=== PATIENT | male | born 1990 ===

== ENCOUNTER 2025-01-06 19:48 | Emergency (ER) | payer MEDICAID, SELFPAY ==
[2025-01-06 19:50] VITALS: BP 142/78; PULSE 80; RESP 18; TEMP 38.2; O2SAT 97; BMI 27.1
--- NOTE | 2025-01-06 19:53 | ED_ITS ---
HPI - General Adult General Chief complaint: Upper Respiratory Symptoms Stated complaint: ?Strep Time Seen by Provider: 01/06/25 19:53 Source: patient, RN notes reviewed and old records reviewed Mode of arrival: ambulatory Limitations: no limitations History of Present Illness ED Provider: Renu MAST narrative: 34-year-old male presents for evaluation of a sore throat and ear pain. He endorses fevers and chills pain Symptoms started yesterday pain He also complains of right ear pain there was no drainage from the ear Related Data Previous Rx's ?Medication ?Instructions ?Recorded amoxicillin 875 mg-potassium 1 tab PO Q12H #20 tabs 01/06/25 clavulanate 125 mg tablet ibuprofen 600 mg tablet 600 mg PO Q6H PRN pain #20 tabs 01/06/25 Allergies Allergy/AdvReac Type Severity Reaction Status Date / Time No Known Allergies Allergy Verified 01/06/25 19:51 Review of Systems Constitutional: Constitutional: Reports body ache(s), Reports chills, Reports fever(s) and Denies headache(s) ENT: Denies vertigo, Denies dizziness, Denies ear discharge, Reports otalgia, Denies facial pain, Denies headache(s) and Reports sore throat Cardiovascular: Cardiovascular: Denies chest pain and Denies dyspnea Respiratory: Respiratory: Denies cough and Denies dyspnea Integumentary/Breasts: Skin/Breast: Denies rash Neurologic: Denies vertigo, Denies dizziness and Denies headache(s) PMFSH Social History Social History Do you have a plan to hurt others: No Plan Physical Exam ED Vital Signs: Vital Signs - 24 hr 01/06/25 19:50 Temperature 100.7 F H Pulse Rate 80 Respiratory Rate 18 Blood Pressure 142/78 H Pulse Oximetry 97 Oxygen Delivery Method Room Air BMI result Body Mass Index 27.1 Const General: healthy appearing, comfortable, no acute distress, alert and awake Nutritional Appearance: well nourished Orientation/consciousness: patient oriented x3 HENMT Other: bilateral tonsillar hypertrophy with whitish exudates bilaterally. And we remains patent. There is no fullness to the soft palate. Uvula remains midline . No anterior neck edema Head: Yes normocephalic and Yes atraumatic Ears: TM's normal bilaterally Eyes Eyelids: Yes eyelids normal Conjunctivae: conjunctivae normal Sclerae: sclerae normal Corneas: corneas normal Pupils: Equal, round and reactive pupils present EOM: EOMs intact bilaterally Neck Neck: Yes full ROM Resp Effort & Inspection: normal respiratory effort, able to speak in complete sentences and not labored Skin General skin exam: elasticity normal Neuro General: patient oriented x3 Cranial nerves: Yes Equal, round and reactive pupils present and Yes Bilaterally intact EOM present Cognition (Neuro): normal cognition Extrem Other: Moving all extremities well without any obvious deformities Medical Decision Making Medical Decision Making MDM Narrative: 34-year-old male presents for evaluation of a sore throat and ear pain. He has an obvious pharyngitis with exudates on exam. Discussed possible strep testing, however he is febrile on will likely require antibiotics urine if it was negative. We will discharge the patient with Augmentin b.i.d. times 10 days there was no evidence of peritonsillar abscess Differential Diagnosis Differential Diagnoses: The differential diagnosis associated with the presentation includes pharyngitis Upper respiratory infection Exudative pharyngitis Viral syndrome less likely Tests considered The following testing was considered but not selected: Strep A testing Discharge Plan Discharge Clinical Impression: Pharyngitis Patient Disposition: Home, Self-Care Instructions: Pharyngitis (ED) Additional Instructions: Take Augmentin twice daily for 10 days. Use ibuprofen / Tylenol for fevers and chills pain Drink lots of fluids. You may also use [id number] Chloraseptic spray to help with the sore throat Prescriptions: New amoxicillin-pot clavulanate 875-125 mg tablet 1 tab PO Q12H Qty: 20 0RF ibuprofen 600 mg tablet 600 mg PO Q6H PRN (Reason: pain) Qty: 20 0RF Stand Alone Forms: Work/School Release Print Language: Ukrainian
[2025-01-06 20:00] VITALS: BP 142/78; PULSE 80; RESP 18; TEMP 38.2; O2SAT 97
[2025-01-06] MEDS: Amoxicillin/Potassium Clav 875 MG TABLET PO (20:01)
[2025-01-06] MEDS: Ibuprofen 600 MG TABLET PO (20:01)
== END 2025-01-06 20:00 | disposition home or self-care (01) ==
PROVIDERS: Emergency Provider Emergency Medicine
DX: J02.9 Acute pharyngitis, unspecified (principal)
CPT/HCPCS: 99283